=== PATIENT | female | born 1940 | race Caucasian/White ===

== ENCOUNTER 2016-11-04 13:00 | Observation (INO) ==
--- NOTE | 2016-11-04 14:05 | History & Physical Report ---
<Christina Richter - Last Filed: 11/04/16 16:15> History of Present Illness Date: 11/04/16 Chief complaint: abdominal pain HPI: Patient is a very pleasant 76-year-old white female patient of Dr. Ross who presented to the emergency department today with complaints of abdominal pain. She states her pain started at 3 AM. She has not felt well since last evening. Did not have much of an appetite. She's never had pain like this in the past. Had some diarrhea last night. States she normally can have up to 3 bowel movements a day. In the emergency room she had lab work showing essentially normal CBC other than a hemoglobin of 11.9. CMP is negative with the exception of elevated liver enzymes. AST 994, ALT 531, alkaline phosphatase 161. Lipase normal. Troponin negative. Urinalysis negative. She had a KUB film showing 1.7 cm gallstone and moderate stool. Negative chest x-ray. Gallbladder sono shows acute cholecystitis with gallstones. Based on her presentation and findings, she was admitted to observation under the hospitalist service and Dr. Gill was consulted for surgical evaluation. Patient was evaluated in her room with her present. She actually came into the emergency room initially, had her workup done, and then went to her sister's and then came back for her hospitalization. She notes that she also has a granddaughter's wedding coming up on Tuesday. She is currently not having significant pain. She would like to at least have some ice chips. Dr. Gill was in to visit with the patient to discuss her surgery. Review of Systems Comprehensive ROS: completed and no additional positive findings except those as stated - Constitutional Constitutional: Present: headache(s) (feels the start of a headache coming on.) - EENMT Ears: Present: other (wears hearing aids) - Gastrointestinal Gastrointestinal: Present: diarrhea (last night. No stools today.), nausea ( typically has nausea in the a.m.'s. Takes Phenergan most mornings.) - Neurological Neurological Comments: Reports history of one seizure in the past. States she's been told to remain on seizure medication. Does not follow with neurology. - Psychiatric Psychiatric: Present: depression (sees Yanira Aleman APRN through [facility]) PFSH Cholecystitis/cholelithiasis Hypertension Type 2 diabetes mellitus Hyperlipidemia Osteopenia Seizure disorder Allergic rhinitis Irritable bowel syndrome-diarrhea prominent Anxiety/depression Surgical History: Cataract surgery Family History: Sister-breast cancer Sister and brother-diabetes Father- age 87-pulmonary fibrosis ([place]) Mother- age 90-old age, osteoarthritis - Social History Smoking status: Never smoker Substance use type: does not use Alcohol intake frequency: does not drink Housing: house Household members: spouse Current occupational status: other (homemaker) Current residence: Apartment/Private Home Social history: PCP-Dr. Ross Medications Home Medications Medication Instructions Recorded Confirmed Type Lisinopril 10 mg PO DAILY #0 12/06/10 11/04/16 History clonazePAM [Clonazepam] 0.5 mg PO BID PRN #0 12/06/10 11/04/16 History Alendronate Sodium [Alendronate 70 mg PO Q7D 11/04/16 11/04/16 History Sodium] Ascorbate Calcium [Vitamin C] 500 mg PO DAILY 11/04/16 11/04/16 History Aspirin [Ecotrin] 81 mg PO DAILY 11/04/16 11/04/16 History Biotin 10 mg PO DAILY 11/04/16 11/04/16 History Calcium Carb/Vitamin D3/Vit K1 1 each PO DAILY 11/04/16 11/04/16 History [Viactiv Soft Chew Tablet] Citalopram [Celexa] 20 mg PO DAILY 11/04/16 11/04/16 History Dulaglutide [Trulicity] 1 dose SQ Q7D 11/04/16 11/04/16 History Metformin HCl [Metformin HCl ER] 500 mg PO HS 11/04/16 11/04/16 History Mirtazapine [Remeron] 45 mg PO HS 11/04/16 11/04/16 History Multivitamin [One Daily 1 each PO DAILY 11/04/16 11/04/16 History Multivitamin] Pravastatin [Pravachol] 20 mg PO HS 11/04/16 11/04/16 History Promethazine HCl 25 mg PO Q6HR PRN 11/04/16 11/04/16 History lamoTRIgine [Lamotrigine] 100 mg PO BID 11/04/16 11/04/16 History Allergies Allergy/AdvReac Type Severity Reaction Status Date / Time No Known Allergies Allergy Unknown Verified 11/04/16 14:20 Exam Vital Signs: Temperature 98.3 F 11/04/16 13:00 Pulse Rate 67 11/04/16 13:12 Respiratory Rate 18 11/04/16 13:00 Blood Pressure 118/56 11/04/16 13:11 Pulse Oximetry 94 11/04/16 13:12 - Constitutional Present: no acute distress, well nourished, well developed - Routine HEENT Exam Head: Present: normocephalic, atraumatic Eye: Present: EOMI, PERRL ENT: Present: mucous membranes moist, dentition normal - Routine Neck Exam Present: supple, full ROM - Routine Respiratory Exam Present: CTA bilaterally. Absent: wheezes - Routine Cardiovascular Exam Present: RRR, S1, S2, murmur (grade 1-2) - Routine Abdominal Exam Present: soft, normoactive bowel sounds, tenderness (diffuse), non distended. Absent: rebound, guarding, organomegaly, mass - Routine Extremities Exam Present: no edema, normal capillary refill - Routine Back/Spine/Pelvis Exam Back/Spine: Present: full ROM - Routine Skin Exam Present: dry, warm - Routine Neurological Exam Present: alert, oriented X3 Cranial nerves III through XII intact - Routine Psychiatric Exam Present: normal affect, normal thought process, cooperative, good insight, good judgment. Absent: suicidal ideation Results - Labs Labs: Laboratory Tests 11/04/16 07:52 WBC 6.9 RBC 3.67 L Hgb 11.9 L Hct 36.8 MCV 100.3 H MCH 32.4 MCHC 32.3 Plt Count 229 Laboratory Tests 11/04/16 07:52 Sodium 140 Potassium 4.0 Chloride 104 Carbon Dioxide 26 BUN 13.0 Creatinine 0.7 Glucose 119 H Calcium 8.4 Total Bilirubin 0.60 AST 994 H ALT 531 H Alkaline Phosphatase 161 H Laboratory Tests 11/04/16 07:52 Troponin I < 0.012 Lipase 184 Urinalysis-essentially negative. - Imaging and Cardiology Chest x-ray Additional comments: Chest x-ray IMPRESSION: No acute cardiopulmonary disease. US - abdomen Additional comments: Gallbladder ultrasound The gallbladder is abnormal and filled with shadowing gallstones. Wall thickening up to 4 mm. Sonographic Quintero's sign was positive. Both the intra and extrahepatic biliary system are of normal caliber with the common duct measuring 5 mm in dimension. Impression: Acute cholecystitis. Surgical consultation is recommended. Abdominal x-ray Additional comments: KUB w upright Bowel gas pattern is nonobstructive and nonspecific. Chronic rounded 1.7 cm probable lamellated gallstone is again noted. Moderate stool throughout the colon. No abnormally dilated small or large bowel. Gas is present distally to the level of the rectum. Bony structures are unchanged. Probable calcified uterine fibroids and pelvic phleboliths. Impression: No acute disease process seen. Cholelithiasis. Assessment and Plan (1) Cholecystitis, acute with cholelithiasis Current visit: Yes Status: Acute (2) Type 2 diabetes mellitus Problem details: 04/29/16-A1c 7.4% Current visit: Yes Status: Acute (3) Essential hypertension Current visit: Yes Status: Acute (4) Hypercholesterolemia Current visit: Yes Status: Acute (5) Osteopenia Current visit: Yes Status: Acute (6) Seizure disorder Current visit: Yes Status: Acute (7) Allergic rhinitis Current visit: Yes Status: Acute (8) Irritable bowel syndrome with diarrhea Current visit: Yes Status: Acute (9) Anxiety and depression Current visit: Yes Status: Acute DVT Prophylaxis: SCD's Resuscitation Status: Full Code Assessment and Plan: Impression: Cholecystitis/cholelithiasis Hypertension Type 2 diabetes mellitus Hyperlipidemia Osteopenia Seizure disorder Allergic rhinitis Irritable bowel syndrome-diarrhea prominent Anxiety/depression Plan: Admit patient to observation under the care of the hospitalist team, attending Dr. Rossi, for pain control while awaiting surgery. Dr. Gill has been consulted for surgery. He plans to proceed with cholecystectomy tomorrow afternoon. Patient will have clear liquids today and then nothing by mouth after midnight. He will put in orders for antibiotics. SCDs for DVT prophylaxis. Morphine 1-2 mg IV every hour PRN for pain, Zofran PRN nausea Accu-Cheks 4 times a day. She is on Trulicity every Tuesday for her diabetes. She also takes metformin at supper. Will hold this. IV fluids for fluid maintenance. Continue patient's home medications with the exception of her metformin and aspirin due to upcoming surgery. Pravastatin on hold due to elevated liver enzymes. Patient requests to be a full code. The patient's care will be returned to her PCP, Dr. Ross, on discharge. Hospital Course Summary Disclaimer: The visit summary below is not to be considered part of the above Progress Note. <FloDesmond albert D - Last Filed: 11/04/16 18:09> History of Present Illness Date: 11/04/16 [facility] Patient Stated Medical History Seizures Yes Cataracts Yes Hypertension Yes Diabetes Mellitus Type 2 Yes Depression Yes Substance Use Disorder denies Exam Vital Signs: Temperature 96.8 F 11/04/16 14:45 Pulse Rate 84 11/04/16 14:45 Respiratory Rate 16 11/04/16 15:27 Blood Pressure 127/59 11/04/16 14:45 Pulse Oximetry 94 11/04/16 14:45 Oxygen Delivery Method Room Air Height/Weight/BMI: Height 1.65 m Weight 65.9 kg Body Mass Index 24.1 Assessment and Plan (1) Cholecystitis, acute with cholelithiasis Current visit: Yes Status: Acute (2) Type 2 diabetes mellitus Problem details: 04/29/16-A1c 7.4% Current visit: Yes Status: Acute (3) Essential hypertension Current visit: Yes Status: Acute (4) Hypercholesterolemia Current visit: Yes Status: Acute (5) Osteopenia Current visit: Yes Status: Acute (6) Seizure disorder Current visit: Yes Status: Acute (7) Allergic rhinitis Current visit: Yes Status: Acute (8) Irritable bowel syndrome with diarrhea Current visit: Yes Status: Acute (9) Anxiety and depression Current visit: Yes Status: Acute Assessment and Plan: Impression: Cholecystitis/cholelithiasis Hypertension Type 2 diabetes mellitus Hyperlipidemia Osteopenia Seizure disorder Allergic rhinitis Irritable bowel syndrome-diarrhea prominent Anxiety/depression Have independently interviewed and examined pt. Chart reviewed. Case discussed with ED physician and my PA. Care plan developed with my supervision; agree with above. Patient presents to ED this morning secondary to severe ab pain. Woke from sleep with acute onset of RUQ pain. Pain dull and persistent in nature; no radiation. Never had pain like this before. Pain worse with moving; would decrease if she would sit up. Hurts to lay down in bed. Some nausea. Was seen in ED and found to have Gallstones and elevated liver enzymes - lipase normal. Admission recommended, but pt needed to get to her sister's so was allowed to leave ED to return post . Returned after , still with pain. Placed in OBS for further surgical evaluation and treatment. Lungs: clear, no distress on RA CV: regular AB: soft, +tender to RUQ but no rebound. BS decreased MSE: awake alert appropriate Plan: OBS. Sx consult with Dr Gill. Clear liquids with NPO after midnight for anticipated cholecystomy. IVF of NS at 75cc/hr. Zofran prn nausea and MS prn severe pain. Recheck CMP, CBC, and lipase in am due to elevated LFT and gallstones. IS for pulmonary toilet. SCD for DVT prevention. Hold metformin and statin medication due to elevated LFT. Hold ASA in light of Sx tomorrow. Monitor sugars. Medically stable for Sx - no obvious contraindication to surgery seen. Hospital Course Summary Disclaimer: The visit summary below is not to be considered part of the above Progress Note. Addendum entered and electronically signed by Christina Richter PA 11/04/16 16:46 : Dr Ross's office was notified of patient's admission and upcoming surgery.
[2016-11-04 14:42] VITALS: BMI 24.1
[2016-11-04] MEDS ORDERED: ONDANSETRON 4 MG/2 ML INJECTION IVP PRN (14:42)
[2016-11-04] MEDS ORDERED: ClonazePAM 1 MG TABLET PO PRN (14:44)
--- NOTE | 2016-11-04 14:56 | General Surgery Consult Note ---
Consult date: 11/04/16 Attending Physician: Desmond Rossi MD. PCP Dr. Ross Reason for consult: gallstones [facility] Patient Stated Medical History Seizures Cataracts Hypertension Diabetes Mellitus Type 2 Depression Anxiety Osteopenia hypercholesterolemia Insomnia Surgical History: Negative except eye surgery Family History: father - pulmonary fibrosis, did age 87 mother - of old age at age 90 brother DM Sister - DM and breast cancer - Social History Smoking status: Never smoker Alcohol intake frequency: does not drink Household members: spouse Medications Home Medications Medication Instructions Recorded Confirmed Type Lisinopril 10 mg PO DAILY #0 12/06/10 11/04/16 History clonazePAM [Clonazepam] 0.5 mg PO BID PRN #0 12/06/10 11/04/16 History Alendronate Sodium [Alendronate 70 mg PO Q7D 11/04/16 11/04/16 History Sodium] Ascorbate Calcium [Vitamin C] 500 mg PO DAILY 11/04/16 11/04/16 History Calcium Carb/Vitamin D3/Vit K1 1 each PO DAILY 11/04/16 11/04/16 History [Viactiv Soft Chew Tablet] Citalopram [Celexa] 20 mg PO DAILY 11/04/16 11/04/16 History Dulaglutide [Trulicity] 1 dose SQ Q7D 11/04/16 11/04/16 History Metformin HCl [Metformin HCl ER] 500 mg PO HS 11/04/16 11/04/16 History Mirtazapine [Remeron] 45 mg PO HS 11/04/16 11/04/16 History Pravastatin [Pravachol] 20 mg PO HS 11/04/16 11/04/16 History Allergies Allergy/AdvReac Type Severity Reaction Status Date / Time No Known Allergies Allergy Unknown Verified 11/04/16 14:20 Review of Systems 10-point ROS: negative except for HPI and the following: - Eyes/Ears/Nose/Throat Eyes: Present: vision problems (glasses) Ear Nose Throat: Present: hearing problems (bilateral hearing aids) - Gastrointestinal Gastrointestinal: Present: nausea (most mornings), diarrhea (yesterday) - Neurological Neurological: Present: seizures (states once many years ago, remains on anti seizure meds), other (occasional headaches) - Psychiatric Psychiatric: Present: anxiety - Vital Signs Last Vital Signs Temp 96.8 F 11/04/16 14:45 Pulse 84 11/04/16 14:45 Resp 16 11/04/16 14:45 BP 127/59 11/04/16 14:45 Pulse Ox 94 11/04/16 14:45 Hospital Course Summary Disclaimer: The visit summary below is not to be considered part of the above Progress Note.
[2016-11-04] MEDS: NS 1,000 ML IV SCH (15:07)
[2016-11-04] MEDS ORDERED: MORPHINE SULFATE 2 MG SYRINGE IVP PRN (15:21)
[2016-11-04] MEDS: ERTAPENEM 1 G in NS 100 ML IV SCH (15:30)
--- NOTE | 2016-11-04 16:02 | Consultation ---
DATE OF CONSULTATION 11/04/2016 FINDINGS Mrs. Lewis is a 76-year-old female whom I was asked to see today as a result of her history and physical findings of abdominal pain in conjunction with possible cholecystitis noted upon radiograph evaluation. Upon questioning the patient, she states that earlier this morning at about 3 o'clock in the morning she was awakened as a result of severe pain within her right upper quadrant. Pain was quite severe in nature and constant. The patient's pain was severe enough that she did present to our emergency room facility earlier this morning. The patient stated the pain began to improve and she was discharged and went to her sister's today. The patient re-presented to the emergency room for further evaluation following the . Patient states that currently she is not experiencing much in the way of pain or discomfort. She denies any similar pain to this in the past. She does describe the pain as somewhat radiating in towards her back. Denies specific aggravating or alleviating symptomatology. PAST MEDICAL HISTORY Performed by my nurse practitioner, Nemesio Dawson. PAST SURGICAL HISTORY Performed by my nurse practitioner, Nemesio Dawson. MEDICATIONS Performed by my nurse practitionerNemesio. ALLERGIES Performed by my nurse practitionerNemesio. SOCIAL HISTORY Performed by my nurse practitionerNemesio. FAMILY HISTORY Performed by my nurse practitionerNemesio. REVIEW OF SYSTEMS Performed by my nurse practitionerNemesio. PHYSICAL EXAMINATION GENERAL: Patient is a 76-year-old female who does not appear to be in acute distress. VITALS: Temperature 98.3. Pulse 67. Respirations 18. Blood pressure 118/56. SaO2 94% on room air. HEENT: Normocephalic. Pupils are equally round and react to light and accommodation. NECK: Supple without lymphadenopathy. CHEST: Clear to auscultation bilaterally. HEART: Regular rate and rhythm. Normal S1, S2, without gallops, murmurs or clicks. ABDOMEN: Palpation of the abdomen reveals it to be soft and nontender. Currently she is without any pain upon palpation within the right upper quadrant. There is no component of guarding or rebound. I did not appreciate any evidence for hepatomegaly or other abnormal masses. EXTREMITIES: Without clubbing, cyanosis, or edema. NEURO: Cranial nerves II-XII grossly intact. Patient without focal, motor, or sensory deficits. LABORATORY/RADIOGRAPHIC EVALUATION The patient had a CMP obtained earlier through the emergency room today. Her AST, ALT, and alkaline phosphatase are elevated at 994, 531 and 161, respectively. Total bilirubin was normal at 0.6. Lipase level was normal at 184. The patient did undergo abdominal ultrasound earlier this morning as well. Ultrasound revealed gallbladder to be abnormal and filled with shadowing gallstones. Wall was thickened up to 4 mm. At that time she had sonographic positive Quintero's sign. Both the intrahepatic and extrahepatic biliary systems were of normal caliber. Common bile duct measured 5 mm in diameter. Findings were consistent with that of acute cholecystitis. ASSESSMENT 76-year-old female with symptomatic cholelithiasis/acute cholecystitis. PLAN Will go ahead and admit the patient to the hospital. Begin empiric broad- spectrum antibiotics. Given the fact the patient is currently without severe pain and does not appear significantly ill, I do believe that surgery can be delayed until tomorrow. It is my recommendation that tomorrow we proceed with laparoscopic cholecystectomy with intraoperative cholangiogram. I did discuss in detail with the patient and her what this procedure would entail and its associated risks, which included but was not exclusive of, bleeding, infection, potential injury to adjacent structures especially the common bile duct, as well as potential conversion to open procedure. Patient and understood and agreed to the proposed plan at this time. JERRELL
[2016-11-04] MEDS ORDERED: MIRTAZAPINE 45 MG TABLET PO SCH (21:00)
[2016-11-05] MEDS: NS 1,000 ML IV SCH ×2 (04:44→18:37)
[2016-11-05] MEDS: MORPHINE SULFATE 2 MG SYRINGE IVP PRN ×2 (04:47→09:40)
[2016-11-05] MEDS: ERTAPENEM 1 G in NS 100 ML IV SCH (08:35)
[2016-11-05] MEDS ORDERED: CALCIUM 600 + VIT D 400 TABLET PO SCH (09:00)
[2016-11-05] MEDS ORDERED: CITALOPRAM 20 MG TABLET PO SCH (09:00)
[2016-11-05] MEDS ORDERED: ASCORBIC ACID 500 MG TABLET PO SCH (09:00)
[2016-11-05] MEDS ORDERED: LISINOPRIL 10 MG TABLET PO SCH (09:00)
[2016-11-05] MEDS ORDERED: LR 1,000 ML IV SCH (10:45)
[2016-11-05] MEDS ORDERED: FentaNYL 100 MCG/2 ML INJECTION ONE ×2 (11:19→12:29)
[2016-11-05] MEDS ORDERED: KETAMINE 500 MG/10 ML INJECTION ONE (11:19)
[2016-11-05] MEDS ORDERED: MIDAZOLAM 2mg/2ml INJECTION ONE (11:19)
[2016-11-05] MEDS ORDERED: PROPOFOL 20 ML ONE (11:20)
[2016-11-05] MEDS ORDERED: ROCURONIUM 50 MG/5 ML INJECTION IVP ONE (11:20)
--- NOTE | 2016-11-05 11:26 | Anesthesia Preoperative Report ---
Anesthesia Preoperative Record - Date and Time Date: 11/05/16 Preoperative Diagnosis: acute cholecystitis Proposed Procedure: lap mark NPO Since Date: 11/04/16 NPO Since Time: 23:00 Allergies/Adverse Reactions: Allergies Allergy/AdvReac Type Severity Reaction Status Date / Time No Known Allergies Allergy Unknown Verified 11/04/16 14:20 - Vital Signs Vital Signs: Temperature 98.4 F 11/05/16 10:25 Pulse Rate 64 11/05/16 10:30 Respiratory Rate 12 11/05/16 10:25 Blood Pressure 151/70 H 11/05/16 10:25 Pulse Oximetry 93 11/05/16 10:25 Oxygen Delivery Method Room Air Height and Weight: Height 1.65 m Weight 65.2 kg Body Mass Index 24.1 - Medications Inpatient Medications: Current Medications Ascorbic Acid (Vitamin C) 500 mg PO DAILY [facility] Last Admin: 11/05/16 08:07 Dose: Not Given Calcium/Vitamin D (Caltrate + D) 1 tab PO DAILY [facility] Last Admin: 11/05/16 08:07 Dose: Not Given Citalopram Hydrobromide (Celexa) 20 mg PO DAILY [facility] Last Admin: 11/05/16 08:07 Dose: Not Given Clonazepam (Klonopin) 0.5 mg PO BID PRN PRN Reason: Anxiety Last Admin: 11/04/16 21:09 Dose: 0.5 mg Sodium Chloride (Normal Saline) 1,000 mls @ 75 mls/hr IV .[id number] [facility] Last Infusion: 11/05/16 09:05 Dose: 75 mls/hr Ertapenem 1 g/ Sodium Chloride 100 mls @ 200 mls/hr IV DAILY [facility] Last Infusion: 11/05/16 09:05 Dose: Infused Lactated Ringer's (Lactated Ringers) 1,000 mls @ 100 mls/hr IV .Q10H [facility] Last Admin: 11/05/16 10:28 Dose: 100 mls/hr Lisinopril (Prinivil) 10 mg PO DAILY [facility] Last Admin: 11/05/16 08:07 Dose: Not Given Mirtazapine (Remeron) 45 mg PO HS [facility] Last Admin: 11/04/16 21:09 Dose: 45 mg Morphine Sulfate (Morphine Sulfate Inj) 1 - 2 mg IVP Q1H PRN PRN Reason: Pain Last Admin: 11/05/16 09:40 Dose: 1 mg Ondansetron HCl (Zofran) 4 mg IVP Q6H PRN PRN Reason: Nausea Home Medications: Home Medications Medication Instructions Recorded Confirmed Type Lisinopril 10 mg PO DAILY #0 12/06/10 11/04/16 History clonazePAM [Clonazepam] 0.5 mg PO BID PRN #0 12/06/10 11/04/16 History Alendronate Sodium [Alendronate 70 mg PO Q7D 11/04/16 11/04/16 History Sodium] Ascorbate Calcium [Vitamin C] 500 mg PO DAILY 11/04/16 11/04/16 History Aspirin [Ecotrin] 81 mg PO DAILY 11/04/16 11/04/16 History Biotin 10 mg PO DAILY 11/04/16 11/04/16 History Calcium Carb/Vitamin D3/Vit K1 1 each PO DAILY 11/04/16 11/04/16 History [Viactiv Soft Chew Tablet] Citalopram [Celexa] 20 mg PO DAILY 11/04/16 11/04/16 History Dulaglutide [Trulicity] 1 dose SQ Q7D 11/04/16 11/04/16 History Metformin HCl [Metformin HCl ER] 500 mg PO HS 11/04/16 11/04/16 History Mirtazapine [Remeron] 45 mg PO HS 11/04/16 11/04/16 History Multivitamin [One Daily 1 each PO DAILY 11/04/16 11/04/16 History Multivitamin] Pravastatin [Pravachol] 20 mg PO HS 11/04/16 11/04/16 History Promethazine HCl 25 mg PO Q6HR PRN 11/04/16 11/04/16 History lamoTRIgine [Lamotrigine] 100 mg PO BID 11/04/16 11/04/16 History - Medical History Cardiovascular: Reports: Hypertension Neuro/Musculoskeletal: Reports: Seizures (low bs seizure 3 yrs ) Renal/Endocrine: Reports: Diabetes Mellitus Type 2 (avg bs at home 120 ) - Surgical History HEENT Surgeries: Reports: Eye Surgery GI Surgery/Treatments: Reports: Colonoscopy Anesthesia Reactions: None Hx Family Anesthesia Reaction: No - Social History Smoking Status: Never smoker Substance Use Type: does not use Alcohol Intake Frequency: does not drink - Pertinent Findings Laboratory: CBC and BMP 11/05/16 04:34 11/05/16 04:34 BMP 11/05/16 04:34 Sodium 145 H Potassium 4.1 Chloride 111 H D Carbon Dioxide 27 BUN 5.0 L D Creatinine 0.6 L Glucose 118 H Calcium 8.2 L Liver Function 11/05/16 Range/Units 04:34 Total Bilirubin 0.60 (0.20-1.30) MG/DL AST 540 H D (14-36) U/L ALT 598 H (9-52) U/L Alkaline Phosphatase 184 H (38-126) U/L Albumin 3.6 (3.5-5.0) G/DL EKG Rhythm: Normal Sinus Rhythm - Physical Exam Respiratory Exam: Present: lungs clear, bilateral breath sounds equal Cardiovascular Exam: Present: regular rate and rhythm, no murmur - Airway Assessment Mallampati Score: III TMD: 2 Fingerbreadths Overall Assessment: may be difficult intubation - ASA ASA Score: 2 - Plan Anesthesia: General Inhalation Gases - Discussion Discussion: Discussed risks/options/alternatives of anesthesia and questions answered. Patient consents. Nursing pain assessment noted. Attestation Statement: Prior to the delivery of any anesthetic medication, I examined the patient, developed the plan, obtained the patient's consent and discussed the risk and benefits of the procedure with the patient/guardian.
[2016-11-05] MEDS ORDERED: BUPIVACAINE 0.25%/EPI 1:200,000 30ml SDV ONE (11:37)
[2016-11-05] MEDS ORDERED: IOHEXOL 300mg/ml 50ml INJECTION ONE (11:40)
[2016-11-05] MEDS ORDERED: DEXAMETHASONE 4 MG/ML INJECTION ONE (12:02)
[2016-11-05] MEDS ORDERED: ONDANSETRON 4 MG/2 ML INJECTION ONE (12:02)
[2016-11-05] MEDS ORDERED: METOCLOPRAMIDE 10mg/2ml INJECTION ONE (12:02)
[2016-11-05] MEDS ORDERED: HYDROMORPHONE 2 MG/ML INJECTION IVP PRN (12:16)
[2016-11-05] MEDS ORDERED: SALINE FLUSH 10ml SYRINGE ONE (12:19)
[2016-11-05] MEDS ORDERED: EPHEDRINE 50mg/ml INJECTION ONE (12:19)
[2016-11-05] MEDS ORDERED: BUPIVACAINE 0.25%/EPI 1:200,000 30ml SDV INFIL ONE (12:39)
[2016-11-05] MEDS ORDERED: IOHEXOL 300mg/ml 50ml INJECTION OPSITE ONE (12:39)
--- NOTE | 2016-11-05 12:58 | General Surgery Procedure Note ---
Date of Procedure: 11/05/16 Surgeon: Jairo Awning Maker: Nemesio Dawson APRN Anesthesia: General Inhalation Gases Postoperative Diagnosis: Symptomatic Cholelithiasis, Umbilical hernia Procedure: laparoscopic cholecystectomy with intraoperative cholangiogram, umbilical hernia repair. Estimated Blood Loss: See Anesthesia Record.
--- NOTE | 2016-11-05 13:00 | Discharge Instructions ---
Discharge Plan - Med Rec/Dispo Referrals/Follow Up: Mac Gill MD [Physician] - 11/17/16 3:45 pm Prescriptions: No Action Lisinopril 10 mg PO DAILY #0 Pravastatin [Pravachol] 20 mg PO HS Alendronate Sodium [Alendronate Sodium] 70 mg PO Q7D Ascorbate Calcium [Vitamin C] 500 mg PO DAILY Multivitamin [One Daily Multivitamin] 1 each PO DAILY lamoTRIgine [Lamotrigine] 100 mg PO BID Aspirin [Ecotrin] 81 mg PO DAILY Promethazine HCl 25 mg PO Q6HR PRN PRN Reason: Nausea &/Or Vomiting clonazePAM [Clonazepam] 0.5 mg PO BID PRN #0 PRN Reason: ANXIETY Metformin HCl [Metformin HCl ER] 500 mg PO HS Mirtazapine [Remeron] 45 mg PO HS Citalopram [Celexa] 20 mg PO DAILY Dulaglutide [Trulicity] 1 dose SQ Q7D Calcium Carb/Vitamin D3/Vit K1 [Viactiv Soft Chew Tablet] 1 each PO DAILY Biotin 10 mg PO DAILY
[2016-11-05] MEDS ORDERED: HYDROCODONE/APAP 5mg/325mg TABLET PO PRN (13:08)
[2016-11-05] MEDS ORDERED: IBUPROFEN 200 MG TABLET PO PRN (13:08)
--- NOTE | 2016-11-05 13:14 | Anesthesia Postoperative Note ---
- Date and Time Date: 11/05/16 Time: 12:51 - Status Patient Participated in Evaluation: Patient Participated in Person Vital Signs: Temperature 97.5 F 11/05/16 13:10 Pulse Rate 83 11/05/16 13:10 Respiratory Rate 11 11/05/16 13:10 Blood Pressure 127/60 11/05/16 13:10 Pulse Oximetry 92 11/05/16 13:10 Oxygen Delivery Method Room Air Respiratory Function: Airway Patent Cardiovascular Function: Regular Pulse EKG Rhythm: Normal Sinus Rhythm Mental Status: Alert and Oriented Pain Intensity: 2 Hydration: IV Infusing Complications During Recover: None Apparent - Follow-Up Instructions Instructions: Per Surgeon
--- NOTE | 2016-11-05 13:35 | Remote Fluorsocopy Report ---
Indication: LAP SHAKIRA PROCEDURE: RF cholangiogram operative: Comparison: Ultrasound dated November 04, 2016 Findings: 4 fluoroscopic spot images are submitted from an intraoperative cholangiogram. Images demonstrate injection of contrast into the cystic duct with filling of the common duct and intrahepatic biliary tree. No discrete filling defects are identified. Contrast flows into the duodenum. Impression: Intraoperative fluoroscopy as above. Please refer to the dictated operative note for further details. Fluoroscopy time is 16.5 seconds. Fluoroscopy dose is 259.8 mRad. .
--- NOTE | 2016-11-05 15:29 | Operative Note ---
DATE OF SURGERY 11/05/2016 SURGEON Mac Gill MD [employer] Nemesio Dawson APRN PREOPERATIVE DIAGNOSIS Acute cholecystitis. POSTOPERATIVE DIAGNOSES Acute cholecystitis. Umbilical hernia. PROCEDURES Laparoscopic cholecystectomy with intraoperative cholangiogram. Umbilical herniorrhaphy. ANESTHESIA General endotracheal. EBL/FLUIDS Please see chart. BRIEF HISTORY/INDICATIONS Mrs. Lewis is a 76-year-old female who presented to our facility yesterday as a result of onset of severe right upper quadrant abdominal pain. The patient did undergo radiograph evaluation that revealed cholelithiasis and evidence for acute cholecystitis. It was therefore recommended to the patient that she undergo surgical intervention. For completeness please refer to notes included in the patient's chart. FINDINGS Upon laparoscopy liver edge smooth without nodularities. Gallbladder was found to have a large stone lodged within the infundibular portion of the gallbladder. Gallbladder wall was thickened and there was a component of pericholecystic edema consistent with acute cholecystitis. Intraoperative cholangiogram was performed and found to be normal. Small bowel, omentum, colon which were visualized were within normal limits. The patient was found to have some adhesions within her lower abdomen. A standard laparoscopic cholecystectomy was able be completed without incident. DESCRIPTION OF PROCEDURE After informed consent was obtained the patient was brought to the operative suite and placed on the table in supine fashion. The abdomen was prepped and draped in sterile fashion. Formal time-out was then completed. Next, 0.25% Marcaine with epinephrine was injected just beneath the umbilicus. One could see that the patient had an umbilical hernia at this location. The base of the umbilicus was dissected off the hernia sac. The hernia sac was then dissected circumferentially along the fascial edges. Fascial defect was on the order of about 1 cm in dimension. Hernia sac was returned back through the fascial defects. [id number] suture of 0-Vicryl was then placed at the site of the fascial defect. A Darek port was then placed through the fascial defect in the peritoneal cavity. Pneumoperitoneum was established to a patient pressure of 15 mmHg utilizing carbon dioxide. Three additional 5-mm ports were then placed within the epigastric region, right mid abdomen right lateral wall. Each port site was preinjected with 0.25% Marcaine with epinephrine and placed under visualization. Abdominal cavity explored via laparoscope. Findings were as noted above. Infundibular portion of the gallbladder was then grasped and retracted in a cephalad fashion. Additional grasping Pean was then placed upon the infundibular portion of the gallbladder and retracted in a lateral and slightly caudad fashion as to provide exposure to the triangle LIZY. Additionally, it should be noted there was some adhesions between the omentum and the inferior edge of the right lobe of the liver. These adhesions were taken down under visualization. Attention was focused back to the gallbladder. Dissection was begun high upon the infundibulum of the gallbladder. Dissection was continued until the only remaining structures coming forth from the infundibulum of the gallbladder were that of the cystic duct and cystic artery. Posterior aspect of the infundibulum was also freed from the underlying liver bed fossa. Once the critical view of safety been obtained, a single hemoclip was then placed upon the cystic duct adjacent to the infundibulum of the gallbladder. Additional hemoclip was then placed upon the cystic artery adjacent to the infundibulum of the gallbladder. Two additional hemoclips were just placed proximally upon the cystic artery. Ductotomy was then made within the cystic duct just proximal to the previously placed hemoclip. Cholangiocatheter was then placed in the ductotomy. Cholangiogram was obtained. Under fluoroscopy one could see a good flow of contrast in the duodenum with appropriate distal taper of the distal common bile duct. No filling defects were noted. Proximally, one could see the intrahepatic radicles , left and right hepatic duct. Again, no filling defects were noted. Additionally, one could see a moderate length of the cystic duct before entering into the common bile duct. After obtaining a normal cholangiogram, the cholangiocatheter removed. Two hemoclips was placed proximally upon the cystic duct. Cystic duct and cystic artery were divided between the two distal hemoclips. Gallbladder was then dissected off the liver bed fossa with use of electrocautery. Gallbladder was then placed in a laparoscopic retrieval bag and removed via the infraumbilical port site. Irrigation was performed and all irrigant was suctioned until clear. Gallbladder fossa was hemostatic in nature. Previously placed hemoclips were visualized and remained to be intact. All irrigant was suctioned until clear. Ports were removed under direct visualization. Previously placed U-stitch was then secured, resulting in closure of the umbilical hernia defect. Base of the umbilicus was imbricated to underlying fascia by placing a single interrupted suture of 0-Vicryl. First , a small subcuticular purchase of the base of the umbilicus was obtained followed by a small purchase of the fascia. All skin incisions were closed in a subcuticular fashion with 4-0 Monocryl. Dermabond was placed overlying the incisions. The patient is in the process of awakening from her anesthetic and will be sent back to the recovery room once deemed in stable condition Additionally, it should be noted that Nemesio Dawson APRN, was present throughout the entire case and played a pivotal role in providing assistance and exposure during the course of the procedure. JERRELL
--- NOTE | 2016-11-05 17:14 | Progress Note ---
Subjective: F/U: Acute cholecystitis, elevated liver enzymes. Doing well this afternoon after surgery. Has been up walking without problems. No nausea. No reporting ab pain. Passing flatus. Breathing well. No f/c. Objective Vital signs: Temperature 97.5 F 11/05/16 13:15 Pulse Rate 83 11/05/16 16:06 Respiratory Rate 17 11/05/16 13:15 Blood Pressure 121/66 11/05/16 16:06 Pulse Oximetry 92 11/05/16 16:06 Oxygen Delivery Method Room Air Rhythm: Normal Sinus Rhythm Height/Weight/BMI: Height 1.65 m Weight 65.2 kg Body Mass Index 24.1 - Constitutional Present: no acute distress, well nourished, well developed, cooperative - Routine HEENT Exam Head: Present: normocephalic, atraumatic Eye: Present: EOMI, PERRL ENT: Present: mucous membranes moist - Routine Respiratory Exam Present: CTA bilaterally. Absent: respiratory distress, rhonchi, crackles - Routine Cardiovascular Exam Present: RRR, no murmur - Routine Abdominal Exam Present: soft, normoactive bowel sounds. Absent: non distended, non tender, rebound - Routine Extremities Exam Present: no edema, pulses intact. Absent: cyanosis, clubbing - Routine Musculoskeletal Exam Musculoskeletal: Present: no clubbing or cyanosis, normal strength - Routine Skin Exam Present: warm, normal turgor - Routine Neurological Exam Present: alert, oriented X3, CN II-XII intact, vision grossly intact, hearing grossly intact. Absent: sensory deficit, motor deficit - Routine Psychiatric Exam Present: normal affect, normal thought process, cooperative. Absent: anxious, agitated Results - Labs CBC & Chem 7: 11/05/16 04:34 11/05/16 04:34 Labs: Laboratory Tests 11/05/16 04:34 AST 540 H D ALT 598 H Alkaline Phosphatase 184 H Lipase 56 Assessment and Plan (1) Cholecystitis, acute with cholelithiasis Current visit: Yes Status: Acute (2) Type 2 diabetes mellitus Problem details: 04/29/16-A1c 7.4% Current visit: Yes Status: Chronic (3) Essential hypertension Current visit: Yes Status: Chronic (4) Hypercholesterolemia Current visit: Yes Status: Chronic (5) Osteopenia Current visit: Yes Status: Chronic (6) Seizure disorder Current visit: Yes Status: Chronic (7) Allergic rhinitis Current visit: Yes Status: Chronic (8) Irritable bowel syndrome with diarrhea Current visit: Yes Status: Chronic (9) Anxiety and depression Current visit: Yes Status: Chronic DVT Prophylaxis: SCD's Resuscitation Status: Full Code Assessment and Plan: Impression: Cholecystitis/cholelithiasis Elevated liver enzymes. Hypertension Type 2 diabetes mellitus Hyperlipidemia Osteopenia Seizure disorder Allergic rhinitis Irritable bowel syndrome-diarrhea prominent Anxiety/depression With patients significant improvement post op, will discharge to home. Encouraged advancing diet as able to tolerate, watching for nausea or ab pain. Increase activities as able. May use [place] 5/325 1 every 6 hours as needed for pain. Discussed potential side effects. Liver enzymes decreasing, but would have her hold pravastatin and metformin until can be seen by Dr Ross. F/U with Dr Gill on 11/17 at 3:45pm for surgical evaluation. F/U with Dr Ross in 1 week for medical evaluation. Recommend rechecking CMP at that time secondary to elevated liver enzymes. Pravastatin and metformin to be on hold until restarted by Dr Ross See orders for details. Case discussed with nursing and Dr Gill. Time spent with patient care and discharger greater than 30 minutes. Sepsis Assessment - Evaluation Sepsis screening result: No Definite Risk Hospital Course Summary Disclaimer: The visit summary below is not to be considered part of the above Progress Note. Hospital Course: Impression: Cholecystitis/cholelithiasis Elevated liver enzymes Umbilical hernia Hypertension Type 2 diabetes mellitus Hyperlipidemia Osteopenia Seizure disorder Allergic rhinitis Irritable bowel syndrome-diarrhea prominent Anxiety/depression Plan: Admit patient to observation under the care of the hospitalist team, attending Dr. Rossi, for pain control while awaiting surgery. Dr. Gill has been consulted for surgery. He plans to proceed with cholecystectomy tomorrow afternoon. Patient will have clear liquids today and then nothing by mouth after midnight. He will put in orders for antibiotics. SCDs for DVT prophylaxis. Morphine 1-2 mg IV every hour PRN for pain, Zofran PRN nausea Accu-Cheks 4 times a day. She is on Trulicity every Tuesday for her diabetes. She also takes metformin at supper. Will hold this. IV fluids for fluid maintenance. Continue patient's home medications with the exception of her metformin and aspirin due to upcoming surgery. Pravastatin on hold due to elevated liver enzymes. Patient requests to be a full code. The patient's care will be returned to her PCP, Dr. Ross, on discharge. 11/05/16 OP DAY - S/P Laparoscopic cholecystectomy with intraoperative cholangiogram and Umbilical herniorrhaphy. Tolerated surgery well. Has been recovering nicely this afternoon. Pain control. No nausea. Ambulating well. Passing flatus. Taking oral. With patients significant improvement post op, will discharge to home. Encouraged advancing diet as able to tolerate, watching for nausea or ab pain. Increase activities as able. May use [place] 5/325 1 every 6 hours as needed for pain. Discussed potential side effects. Liver enzymes decreasing, but would have her hold pravastatin and metformin until can be seen by Dr Ross. F/U with Dr Gill on 11/17 at 3:45pm for surgical evaluation. F/U with Dr Ross in 1 week for medical evaluation. Recommend rechecking CMP at that time secondary to elevated liver enzymes. Pravastatin and metformin to be on hold until restarted by Dr Ross
--- NOTE | 2016-11-05 17:27 | Discharge Summary ---
Discharge Information Date of admission: 11/04/16 13:52 Anticipated date of discharge: 11/05/16 Attending Physician: Desmond Rossi MD Primary care physician: Ayaz Ross MD Consults: 11/04/16 Consulting Provider: Mca Gill Reason For Exam: Acute cholecystitis - Discharge Diagnosis Discharge Diagnosis: Symptomatic cholelithiasis/acute cholecystitis Associated conditions and complications Elevated liver enzymes Umbilical hernia Hypertension Type 2 diabetes mellitus Hyperlipidemia Osteopenia Seizure disorder Allergic rhinitis Irritable bowel syndrome-diarrhea prominent Anxiety/depression - Procedures Procedures: DATE OF SURGERY: 11/05/2016 SURGEON: Mac Gill MD POSTOPERATIVE DIAGNOSES Acute cholecystitis. Umbilical hernia. PROCEDURES Laparoscopic cholecystectomy with intraoperative cholangiogram. Umbilical herniorrhaphy. - Laboratory Labs: 11/05/16 04:34 11/05/16 04:34 Laboratory Tests 11/05/16 04:34 AST 540 H D ALT 598 H Alkaline Phosphatase 184 H - Radiology Radiology: Date of Exam: 11/04/16 PROCEDURE: US abdomen limited Findings: Hepatic parenchyma is homogeneous without evidence for focal mass. The gallbladder is abnormal and filled with shadowing gallstones. Wall thickening up to 4 mm. Sonographic Quintero's sign was positive. Both the intra and extrahepatic biliary system are of normal caliber with the common duct measuring 5 mm in dimension. Visualized portions of the head and body of the pancreas are unremarkable. The right kidney is present without collecting system dilatation. The right kidney measures 10.1 cm in length. Impression: Acute cholecystitis. Surgical consultation is recommended. History of Present Illness HPI: Patient is a very pleasant 76-year-old white female patient of Dr. Ross who presented to the emergency department today with complaints of abdominal pain. She states her pain started at 3 AM. She has not felt well since last evening. Did not have much of an appetite. She's never had pain like this in the past. Had some diarrhea last night. States she normally can have up to 3 bowel movements a day. In the emergency room she had lab work showing essentially normal CBC other than a hemoglobin of 11.9. CMP is negative with the exception of elevated liver enzymes. AST 994, ALT 531, alkaline phosphatase 161. Lipase normal. Troponin negative. Urinalysis negative. She had a KUB film showing 1.7 cm gallstone and moderate stool. Negative chest x-ray. Gallbladder sono shows acute cholecystitis with gallstones. Based on her presentation and findings, she was admitted to observation under the hospitalist service and Dr. Gill was consulted for surgical evaluation. Patient was evaluated in her room with her present. She actually came into the emergency room initially, had her workup done, and then went to her sister's and then came back for her hospitalization. She notes that she also has a granddaughter's wedding coming up on Tuesday. She is currently not having significant pain. She would like to at least have some ice chips. Dr. Gill was in to visit with the patient to discuss her surgery. For complete details of the H&P refer to that document. Objective Vital signs: Temperature 97.5 F 11/05/16 13:15 Pulse Rate 83 11/05/16 16:06 Respiratory Rate 17 11/05/16 13:15 Blood Pressure 121/66 11/05/16 16:06 Pulse Oximetry 92 11/05/16 16:06 Oxygen Delivery Method Room Air Rhythm: Normal Sinus Rhythm Height/Weight/BMI: Height 1.65 m Weight 65.2 kg Body Mass Index 24.1 Hospital Course This is a general summary of the patient's hospital course. For more details refer to the complete medical record. Hospital course: Impression: Cholecystitis/cholelithiasis Elevated liver enzymes Umbilical hernia Hypertension Type 2 diabetes mellitus Hyperlipidemia Osteopenia Seizure disorder Allergic rhinitis Irritable bowel syndrome-diarrhea prominent Anxiety/depression Plan: Admit patient to observation under the care of the hospitalist team, attending Dr. Rossi, for pain control while awaiting surgery. Dr. Gill has been consulted for surgery. He plans to proceed with cholecystectomy tomorrow afternoon. Patient will have clear liquids today and then nothing by mouth after midnight. He will put in orders for antibiotics. SCDs for DVT prophylaxis. Morphine 1-2 mg IV every hour PRN for pain, Zofran PRN nausea Accu-Cheks 4 times a day. She is on Trulicity every Tuesday for her diabetes. She also takes metformin at supper. Will hold this. IV fluids for fluid maintenance. Continue patient's home medications with the exception of her metformin and aspirin due to upcoming surgery. Pravastatin on hold due to elevated liver enzymes. Patient requests to be a full code. The patient's care will be returned to her PCP, Dr. Ross, on discharge. 11/05/16 OP DAY - S/P Laparoscopic cholecystectomy with intraoperative cholangiogram and Umbilical herniorrhaphy. Tolerated surgery well. Has been recovering nicely this afternoon. Pain control. No nausea. Ambulating well. Passing flatus. Taking oral. Liver enzymes repeated this am and trending downwards. With patients significant improvement post op, will discharge to home. Encouraged advancing diet as able to tolerate, watching for nausea or ab pain. Increase activities as able. May use [place] 5/325 1 every 6 hours as needed for pain. Discussed potential side effects. Liver enzymes decreasing, but would have her hold pravastatin and metformin until can be seen by Dr Ross. F/U with Dr Gill on 11/17 at 3:45pm for surgical evaluation. F/U with Dr Ross in 1 week for medical evaluation. Recommend rechecking CMP at that time secondary to elevated liver enzymes. Pravastatin and metformin to be on hold until restarted by Dr Ross Time spent with patient: discharge greater than 30 minutes DVT Prophylaxis: SCD's Discharge Plan - Med Rec/Dispo Referrals/Follow Up: Mac Gill MD [Physician] - 11/17/16 3:45 pm Ayaz Ross MD [Family Provider] - 1 Week (Hospital F/U: GB removed. Liver enzymes elevated at presention, trending down. Pravastatin and metformin held. Recheck CMP at visit. ) Additional Instructions: Hold (Do not use) pravastatin and metformin due to elevation of your liver enzymes. Have lab (CMP) done at your visit with Dr Ross in 1 week. If your liver enzymes have returned to normal, he can restart the pravastatin and metformin. Prescriptions: New Hydrocodone/APAP 5/325 [[place] 5/325] 1 - 2 tab PO Q5H PRN #30 tablet PRN Reason: Pain Ibuprofen [Motrin] 400 mg PO Q6H PRN tablet PRN Reason: Pain Continue Lisinopril 10 mg PO DAILY #0 Alendronate Sodium 70 mg PO Q7D Ascorbate Calcium [Vitamin C] 500 mg PO DAILY Multivitamin [One Daily Multivitamin] 1 each PO DAILY lamoTRIgine [Lamotrigine] 100 mg PO BID Aspirin [Ecotrin] 81 mg PO DAILY Promethazine HCl 25 mg PO Q6HR PRN PRN Reason: Nausea &/Or Vomiting clonazePAM [Clonazepam] 0.5 mg PO BID PRN #0 PRN Reason: ANXIETY Mirtazapine [Remeron] 45 mg PO HS Citalopram [Celexa] 20 mg PO DAILY Dulaglutide [Trulicity] 1 dose SQ Q7D Calcium Carb/Vitamin D3/Vit K1 [Viactiv Soft Chew] 1 each PO DAILY Biotin 10 mg PO DAILY Discontinued Pravastatin [Pravachol] 20 mg PO HS Metformin HCl [Metformin HCl ER] 500 mg PO HS Discharge Instructions/Outpatient Orders: Final Provider Discharge Instructions Location: Determined By Patient - Disposition 01 Discharged Home, Self-Care - Attestation Attestation Narrative: 11/05/16 17:36 I have independently interviewed and examined pt prior to discharge. See my progress note from today for details. Medically stable for discharge to home.
[2016-11-05 18:27] VITALS: BP 142/69; PULSE 89; RESP 14; TEMP 96; O2SAT 95
== END 2016-11-05 18:05 | disposition home or self-care (01) ==
LOC: ED 13:00 → SRG 13:00
PROVIDERS: ADMIT Hospitalist; ATTEND Hospitalist